=== PATIENT | male | born 2000 | race Caucasian/White ===

== ENCOUNTER 2020-05-21 18:03 | Observation (INO) | payer OTHER, SELFPAY ==
[2020-05-21] VITALS (12 sets, daily range): BP systolic 108–126; BP diastolic 60–76; PULSE 51–62; RESP 10–18; TEMP 36.3–36.7; O2SAT 97–100; BMI 23.4
--- NOTE | 2020-05-21 18:10 | ED.GENADULT ---
HPI - General Adult General Chief complaint: Dental/Oral Stated complaint: Bleeding after tonsilectomy Time Seen by Provider: 05/21/20 18:09 Source: patient and family (Mother) Mode of arrival: Ambulatory Limitations: no limitations History of Present Illness HPI narrative: 19-year-old male sent over to the emergency department from his ENT office with plans of being transported to the emergency department to evaluate and treat a post tonsillectomy bleed. Patient has had 2 separate bleeds today. Was seen both times by the ENT providers and the decision was made to bring him to the hospital to taking to the operating room. The time of his arrival here he was not actively bleeding. There was no issues with breathing. Related Data Home Medications Medication Instructions Recorded Confirmed No Known Home Medications 05/21/20 05/21/20 Allergies Allergy/AdvReac Type Severity Reaction Status Date / Time azithromycin Allergy Verified 05/21/20 19:00 Review of Systems Constitutional Constitutional: Denies fever(s) ENT Comments: Post tonsillectomy bleed Cardiovascular Cardiovascular: Denies dyspnea Respiratory Respiratory: Denies dyspnea Gastrointestinal Gastrointestinal: Denies vomiting Integumentary/Breasts Skin/Breast: Denies rash Hematologic/Lymphatic Hematologic/Lymphatic: Denies easy bleeding and Denies easy bruising Patient History Medical History Concussion (Inactive) Surgical History S/P tonsillectomy (Acute) Social History household members: family Smoking Status: Never smoker alcohol intake: current Smoking Status: Never smoker Exam Initial Vital Signs Initial Vital Signs: Vital Signs Temperature 97.9 F 05/21/20 18:09 Pulse Rate 61 05/21/20 18:09 Respiratory Rate 17 05/21/20 18:09 Blood Pressure 126/75 05/21/20 18:09 Pulse Oximetry 100 05/21/20 18:09 Const General: cooperative and comfortable Limitations: mental status not altered HENMT Head: normal to inspection and normocephalic Mouth: oral mucosae normal Throat: uvula midline and other (Eschar bilateral tonsillar beds without active bleeding) Resp Effort & Inspection: normal respiratory effort Cardio Rate: regular rate Neuro General: patient alert and patient awake Extrem General: normal to inspection Psych Appearance: grossly normal and well kempt Course Orders Ordered: ED Orders 05/21/20 18:07 COVID19 -ED/INPAT/OR/L&D Stat 05/21/20 18:35 Basic Metabolic Panel Stat Complete Blood Count AUTO DIFF Stat Benzocaine (Cepacol Lozenge) 1 each PO PRN PRN PRN Reason: Sore Throat Last Admin: 05/21/20 21:10 Dose: 1 each Documented by: FLOR Fentanyl (Sublimaze) 0 mcg IV Q5M PRN PRN Reason: Pain, Moderate (4-6) Last Admin: 05/21/20 18:57 Dose: 50 mcg Documented by: MIGUEL Hydromorphone HCl (Dilaudid) 0 mg IV Q5M PRN PRN Reason: Pain, Moderate (4-6) Lactated Ringer's (Lactated Ringers) 1,000 mls @ 125 mls/hr IV CONT [facility] Last Admin: 05/21/20 22:45 Dose: 125 mls/hr Documented by: FLOR Meperidine HCl (Demerol) 25 mg IV PACUNOW PRN PRN Reason: Moderate pain or shivering Metoclopramide HCl (Reglan) 10 mg IV NOW PRN PRN Reason: Nausea And Vomiting Naloxone HCl (Narcan) 0.2 mg IV Q2MIN PRN PRN Reason: Opiate Reversal Ondansetron HCl (Zofran) 4 mg IV NOW PRN PRN Reason: Nausea And Vomiting Ondansetron HCl (Zofran) 4 mg IV Q4HR PRN PRN Reason: Nausea And Vomiting Last Admin: 05/21/20 21:10 Dose: 4 mg Documented by: FLOR Oxycodone/Acetaminophen (Percocet 5/325) 1 tab PO Q4HR PRN PRN Reason: Pain, Moderate (4-6) Discontinued Medications Bupivacaine HCl/Epinephrine Bitart (Sensorcaine 0.25% W/ Epi (Pf)) 30 ml INJ NOW ONE Stop: 05/21/20 19:36 Last Admin: 05/21/20 19:36 Dose: 5 ml Documented by: STAR Lactated Ringer's (Lactated Ringers) 1,000 mls @ 42 mls/hr IV CONT [facility] Last Infusion: 05/21/20 20:37 Dose: 0 mls/hr Documented by: Admin: 05/21/20 18:58 Dose: 42 mls/hr Documented by: MIGUEL Lidocaine/Epinephrine (Xylocaine 1% W/Epi) 20 ml INJ NOW ONE Stop: 05/21/20 19:37 Last Admin: 05/21/20 19:37 Dose: 5 ml Documented by: STAR Oxycodone/Acetaminophen (Percocet 5/325) 1 tab PO Q4HR PRN PRN Reason: Pain, Moderate (4-6) Oxymetazoline HCl (Nasal Decongestant) 2 sprays NASAL NOW ONE Stop: 05/21/20 19:38 Last Admin: 05/21/20 19:38 Dose: 1 sprays Documented by: KECIA Vital Signs Vital signs: Vital Signs - 8 hr 05/21/20 18:09 Temperature 97.9 F Pulse Rate 61 Respiratory Rate 17 Blood Pressure 126/75 Pulse Oximetry 100 Medical Decision Making Lab Data Lab results reviewed: Yes I reviewed the patient's lab results. Result diagrams: 05/21/20 18:35 05/21/20 18:35 Labs: Lab Results 05/21/20 05/21/20 05/21/20 Range/Units 18:07 18:35 18:35 WBC 10.0 (4.5-11.0) X10^3/uL RBC 4.57 (4.5-5.9) X10^6/uL Hgb 13.9 (13.5-17.5) g/dL Hct 41.2 (41-53) % MCV 90.2 (80-100) fL MCH 30.4 (26-34) PG MCHC 33.7 (30-36) % RDW 12.7 (11.6-14.8) % Plt Count 185 (150-400) X10^3/uL Neut % (Auto) 66.2 (50-75) % Lymph % (Auto) 24.6 L (25-40) % [place] % (Auto) 8.4 (3-14) % Eos % (Auto) 0.5 L (2-4) % Baso % (Auto) 0.3 (0-2) % Neut # (Auto) 6600 (5976-1279) /uL Lymph # (Auto) 2500 (9870-1575) /uL Thomas # (Auto) 800 (0-900) /uL Eos # (Auto) 0 (0-450) /uL Baso # (Auto) 0 (0-100) /uL Sodium 139 (137-145) mmol/L Potassium 3.9 (3.4-5.1) mmol/L Chloride 101 (98-107) mmol/L Carbon Dioxide 29 (22-32) mmol/L BUN 17 (9-20) mg/dL Creatinine 0.91 (0.66-1.25) mg/dL Estimated GFR > 60.0 (>60) mL/min BUN/Creatinine Ratio 18.7 (6-22) Glucose 100 (70-100) mg/dL Calcium 9.7 (8.4-10.2) mg/dL COVID-19 PCR Negative (Negative) MDM Narrative Medical decision making narrative: IV in place, labs ordered, Dr. Lee from ENT will take patient to the OR for further evaluation treatment. Discharge Plan Departure Clinical Impression: Post-tonsillectomy hemorrhage Admit Date/Time: 05/21/20 18:52 Admit Provider: Bryan Lee
[2020-05-21 18:32] LABS: COVID19 -Nasal RAPID Negative (Negative)
--- NOTE | 2020-05-21 18:44 | PC.NURSE ---
Pt taken to OR by Juju from perianesthesia, Defer assessment to Dr Lyons
[2020-05-21 18:48] LABS: Add Manual Diff / Slide Review NO; Basophils Absolute Auto 0 /uL (0-100); Basophils Percent Auto 0.3 % (0-2); Eosinophils Absolute Auto 0 /uL (0-450); Eosinophils Percent Auto 0.5 % (2-4); Hematocrit 41.2 % (41-53); Hemoglobin 13.9 g/dL (13.5-17.5); Lymphocytes Absolute Auto 2500 /uL (1100-4500); Lymphocytes Percent Auto 24.6 % (25-40); Mean Corpuscular HGB Conc 33.7 % (30-36); Mean Corpuscular Hemoglobin 30.4 PG (26-34); Mean Corpuscular Volume 90.2 fL (80-100); Monocytes Absolute Auto 800 /uL (0-900); Monocytes Percent Auto 8.4 % (3-14); Neutrophils Absolute Auto 6600 /uL (1500-7000); Neutrophils Percent Auto 66.2 % (50-75); Platelet Count 185 X10^3/uL (150-400); Red Blood Cell Count 4.57 X10^6/uL (4.5-5.9); Red Cell Distribution Width 12.7 % (11.6-14.8)
--- NOTE | 2020-05-21 18:52 | P.HP_ITS ---
History of Present Illness History of Present Illness Date Patient Seen: 05/21/20 Time Patient Seen: 18:52 Chief complaint: Bleeding after tonsilectomy Narrative: 19-year-old male originally status post adenotonsillectomy by Dr. Adi perez for chronic tonsillitis at [facility] on 05/12, required operative control of right superior fossa post tonsillectomy hemorrhage by Dr. carrillo at [facility] late 05/19. There was some recurrence bleeding today for which I saw him in clinic and cauterized twice, but ultimately was unable to control the bleeding satisfactorily. Therefore he was transferred to [facility] Emergency room with the plan to proceed to the operating room for operative control. His hematocrit was 44 on 05/19. Pain remains significant although he was keeping up on fluids. Last solid food approximately 12:30 p.m. Patient History Family & Social History Safety & Behavioral: Feels Safe in Current Yes Environment Tobacco & Substance use: Smoking Status Never smoker Meds Home Medications and Allergies Allergies Allergy/AdvReac Type Severity Reaction Status Date / Time azithromycin Allergy Verified 05/21/20 18:44 Review of Systems Review of Systems Narrative: Throat pain, bleeding ROS: Yes All systems reviewed with the patient and are negative except as otherwise documented Exam Vital Signs (past 8 hours): - 05/21/20 18:09 Temperature 97.9 F Pulse Rate 61 Respiratory Rate 17 Blood Pressure 126/75 Pulse Oximetry 100 Oxygen Delivery Method Room Air Narrative Exam Narrative: Well-developed well-nourished male, awake and alert, some fresh clot in the oropharynx. Heart regular rate and rhythm without murmur, lungs clear to auscultation bilaterally Objective Labs Result Diagrams: 05/21/20 18:35 05/21/20 18:35 Labs: Laboratory Results - last 24 hr 05/21/20 05/21/20 18:07 18:35 WBC 10.0 RBC 4.57 Hgb 13.9 Hct 41.2 MCV 90.2 MCH 30.4 MCHC 33.7 RDW 12.7 Plt Count 185 Neut % (Auto) 66.2 Lymph % (Auto) 24.6 L [place] % (Auto) 8.4 Eos % (Auto) 0.5 L Baso % (Auto) 0.3 Neut # (Auto) 6600 Lymph # (Auto) 2500 [place] # (Auto) 800 Eos # (Auto) 0 Baso # (Auto) 0 COVID-19 PCR Negative Assessment & Plan Assessment & Plan narrative: Recurrent bleeding now POD 9. Status post adenotonsillectomy, despite prior operative control of post tonsillectomy bleed POD 7. Following discussion of the material risks benefits complications and alternatives, the patient elects to proceed with operative control of post tonsillectomy hemorrhage, possibly bilateral.
--- NOTE | 2020-05-21 18:52 | PM.PREOP ---
Pre-operative Note COVID-19 COVID-19 status: Negative Interval Note History & Physical reviewed/Exam performed by Physician: Yes Changes to H&P: No
--- NOTE | 2020-05-21 18:56 | P.OP_ITS ---
Operative Date/Time/Diagnoses Date of procedure: 05/21/20 Time of procedure: 19:40 Pre-op diagnosis: Post tonsillectomy hemorrhage, recurrent Post-op diagnosis: same Procedure & Clinicians Procedure: 61232 operative control of posttonsillectomy hemorrhage Same procedure as scheduled: Yes Indications: 19-year-old male, originally status post adenotonsillectomy for chronic tonsillitis 05/12, presents for recurrent post tonsillectomy hemorrhage, now POD 9, originally pod 7., unable to be adequately controlled in clinic. Following discussion of the material risks benefits complications and alternatives, the patient elected to proceed. Surgeon: Bryan Lee Click Yes if Unassisted: Yes Anesthesia Type: General and Local Operative Notes Findings: Intact palate single uvula. Two small clot right inferior tonsillar fossa that once removed revealed small pumping vessels, cauterized. Small vessel left inferior tonsillar fossa also identified and cauterized. The previous left mid fossa cauterized area was further cauterized but no significant bleeding there. Finally, the right superior tonsillar fossa was cauterized in any suspicious areas but no significant bleeding there. No suture s were placed but some more visible from prior placement. No bleeding from the adenoids. Minimal blood in the stomach suctioned with the OG tube. Closure Type: not applicable Specimen(s): none sent Estimated Blood Loss (mL): 10 Blood products transfused: none Procedure in detail: Following identification and confirmation of consent the patient was brought to the operating room suite and placed in the supine position. General endotracheal anesthesia was administered. A head wrap, shoulder roll, and mouth gag were placed and a red rubber catheter was inserted through the nostril and out the mouth to retract the soft palate. The above findings were noted, and suction electrocautery on a setting of 30 was used to systematically removed any visible clot and cauterize the visible vessels. Previously cauterized areas were deliberately manipulated to try to promote any bleeding and cauterized deeper. No suture ligation was necessary. The tonsillar fossae were superficially infiltrated bilaterally with a 1:1 mixture of 1% lidocaine 1 100,000 epinephrine and 0.25% Marcaine 1 to [id number] epinephrine. The OG tube was passed x2 in the stomach. Mouth gag and rubber catheter were removed and the patient was extubated in the operating room and taken to the recovery room in stable condition without known complication. Complications: none Post-operative Condition: stable Disposition: observation Plan for aftercare: Overnight observation due to his recurrent bleeding history, discharge tomorrow in the morning if stable.
[2020-05-21] MEDS: fentaNYL 100 MCG/2 ML INJ IV (18:57)
[2020-05-21] MEDS: LACTATED RINGERS 1,000 ML 42 ML IV (18:58)
[2020-05-21 19:06] LABS: HEMOLYSIS 16 (0-50); Potassium 3.9 mmol/L (3.4-5.1)
[2020-05-21 19:08] LABS: BUN Creatinine Ratio 18.7 (6-22); Blood Urea Nitrogen 17 mg/dL (9-20); Calcium 9.7 mg/dL (8.4-10.2); Carbon Dioxide 29 mmol/L (22-32); Chloride 101 mmol/L (98-107); Estimated Glomerular Filt Rate > 60.0 mL/min (>60); Glucose 100 mg/dL (70-100); Sodium 139 mmol/L (137-145)
--- NOTE | 2020-05-21 19:33 | SUR.OPER ---
Supine on padded OR bed, head on pillow, arms secured on padded arm boards at <90 degrees abduction, legs uncrossed, safety belt at thigh, tape over blanket over lower legs.
[2020-05-21] MEDS: BUPIVACAINE 0.25% W/ EPI 30 ML VIAL INJ (19:36)
[2020-05-21] MEDS: LIDOCAINE 1% W/EPI 20 ML INJ (19:37)
[2020-05-21] MEDS: OXYMETAZOLINE NASAL SPRAY 15 ML 2 SPRAYS NASAL (19:38)
[2020-05-21] MEDS: BENZOCAINE/MENTHOL 1 LOZ PKT 1 EACH PO (21:10)
[2020-05-21] MEDS: ONDANSETRON 4 MG/2 ML INJ IV (21:10)
[2020-05-21] MEDS: LACTATED RINGERS 1,000 ML 125 ML IV (22:45)
[2020-05-21] MEDS: OXYCODONE/ACETAMINOPHEN 5/325 TABLET 1 TAB PO (23:54)
[2020-05-22 00:01] VITALS: BP 121/66; PULSE 84; RESP 16; TEMP 36.4; O2SAT 95
[2020-05-22 00:15] VITALS: O2SAT 95
[2020-05-22 05:01] VITALS: BP 111/70; PULSE 57; RESP 16; TEMP 36.7; O2SAT 96
[2020-05-22 08:00] VITALS: BP 114/45; PULSE 65; RESP 16; TEMP 36.8; O2SAT 97; O2SAT 98
--- NOTE | 2020-05-22 11:43 | CM.IDA ---
Initial DCP Assessment Note Patient is a 19 yo male, resident of [place]. Patient is POD#1 from operative control of post tonsillectomy bleeding (recurrent) PCP: Kiah Hidalgo Payer: [employer] [facility] Reviewed chart. Met w/patient this morning to introduce role. Patient explains he is ready to return home, scheduled to be DC today and has no needs from this [employer] P: DC home w/family to assist as needed via pov JW
--- NOTE | 2020-05-22 19:19 | PM.DS.1 ---
History of Present Illness History of Present Illness Chief complaint: Bleeding after tonsilectomy Narrative: 19-year-old male originally status post adenotonsillectomy by Dr. Adi perez for chronic tonsillitis at [facility] on 05/12, required operative control of right superior fossa post tonsillectomy hemorrhage by Dr. carrillo at [facility] late 05/19. There was some recurrence bleeding today (05/21)for which I saw him in clinic and cauterized twice, but ultimately was unable to control the bleeding satisfactorily. Therefore he was transferred to [facility] Emergency room with the plan to proceed to the operating room for operative control. His hematocrit was 44 on 05/19. Pain remains significant although he was keeping up on fluids. Last solid food approximately 12:30 p.m. Discharge Providers Provider Date of admission: 05/21/20 18:52 Discharge Date: 05/22/20 Primary care physician: Kiah Hidalgo MD Consults: 05/21/20 20:09 Consult to Discharge Planning Routine Comment: Discharge provider: Bryan Lee MD Summary Hospital Course Discharge Diagnosis: Post tonsillectomy hemorrhage, recurrent, controlled in operating Room 05/21/2020 Hospital Course: Patient was taken to the operating Room 05/21/2020, please see dictated operative report for details. He was observed overnight on IV fluids and was stable for discharge home in the morning without any evidence of bleeding. He followed up with me in clinic later that morning in the tonsillar fossa were entirely clear. He was tolerating fluids and pain was controlled. Status at Discharge Cognitive/behavioral status at discharge: at baseline, oriented Functional status at discharge: independent ambulation Overall status at discharge: patient is back to baseline Exam Vital Signs (past 8 hours): Oxygen Delivery Method Room Air Oxygen Flow Rate 0 Objective Labs Result Diagrams: 05/21/20 18:35 05/21/20 18:35 Discharge Plan Discharge Plan Patient Disposition: Home Discharge orders & Medications Prescriptions: No Action No Known Home Medications RF: 0 Follow up/Referrals: Kiah Hidalgo MD [Primary Care Provider] - Visit Report/Discharge Packet Instructions: DI for Tonsillectomy-Adult Visit Report Forms: Patient Portal/API, Stroke Signs & Symptoms Discharge Data Primary Care Provider: Kiah Hidalgo Attending Provider: Bryan Lee Admit Date/Time: 05/21/20 18:52 Discharges patient from system. Discharge Date/Time: 05/22/20 11:01 Quality VTE Deep Vein Thrombosis/Pulmonary Embolism Present on Admission: No
== END 2020-05-22 11:01 | disposition home or self-care (01) ==
LOC: ED 18:37 → AC 18:55
PROVIDERS: Admitting Provider Otolaryngology; Emergency Provider Emergency Medicine; PCP Pediatrics; Referring Provider Emergency Medicine; Visit Provider Otolaryngology
PROC: (CPT 42962; principal; 2020-05-21 19:45)
DX: E89.810 Postprocedural hemorrhage of an endocrine system organ or structure following an endocrine system procedure (principal); Z11.59 Encounter for screening for other viral diseases
CPT/HCPCS: 42962; 36415; 80048; 85025; 87635; 96361; 96374; 99283; G0378; J2405; J3010

== ENCOUNTER → 2022-06-28 16:03 | Outpatient (CLI) | payer BC, SELFPAY ==
[2020-05-21 18:56] VITALS: BMI 23.4
[2022-06-28 18:28] LABS: Add Manual Diff / Slide Review NO; Basophils Absolute Auto 100 /uL (0-100); Basophils Percent Auto 0.6 % (0-2); Eosinophils Absolute Auto 100 /uL (0-450); Eosinophils Percent Auto 0.9 % (2-4); Hemoglobin 14.7 g/dL (13.5-17.5); Lymphocytes Absolute Auto 1700 /uL (1100-4500); Lymphocytes Percent Auto 19.1 % (25-40); Mean Corpuscular HGB Conc 34.2 % (30-36); Mean Corpuscular Hemoglobin 30.5 PG (26-34); Monocytes Absolute Auto 600 /uL (0-900); Neutrophils Absolute Auto 6400 /uL (1500-7000); Neutrophils Percent Auto 72.4 % (50-75); Platelet Count 210 X10^3/uL (150-400); Red Blood Cell Count 4.83 X10^6/uL (4.5-5.9); Red Cell Distribution Width 12.6 % (11.6-14.8); White Blood Cell Count 8.8 X10^3/uL (4.5-11.0)
[2022-06-28 18:35] LABS: Alanine Aminotransferase 33 IU/L (<50); Albumin 4.9 g/dL (3.5-5.0); Albumin Globulin Ratio 1.4 (1.0-2.8); Alkaline Phosphatase 54 U/L (38-126); Aspartate Aminotransferase 39 IU/L (17-59); BUN Creatinine Ratio 24.4 (6-22); Bilirubin Total 0.5 mg/dL (0.2-1.3); Blood Urea Nitrogen 20 mg/dL (9-20); Calcium 9.6 mg/dL (8.4-10.2); Carbon Dioxide 27 mmol/L (22-32); Chloride 99 mmol/L (98-107); Estimated Glomerular Filt Rate > 60 mL/min (>60); Globulin 3.6 g/dL (1.7-4.1); Glucose 93 mg/dL (70-100); HEMOLYSIS 17 (0-50); Lipase 62 U/L (23-300); Potassium 4.1 mmol/L (3.4-5.1); Sodium 138 mmol/L (137-145); Total Protein 8.5 g/dL (6.3-8.2)
== END ==
PROVIDERS: PCP Pediatrics; Referring Provider Physician Assistant; Visit Provider Physician Assistant
DX: R10.9 Unspecified abdominal pain (principal); R19.7 Diarrhea, unspecified
CPT/HCPCS: 36415; 80053; 83690; 85025; 87045; 87899

== ENCOUNTER → 2023-09-01 16:59 | Outpatient (CLI) | payer BC, SELFPAY ==
[2020-05-21 18:56] VITALS: BMI 23.4
--- NOTE | 2023-09-01 | DI.MRI.S_ITS ---
PROCEDURE: MR SHOULDER RT WO CON INDICATIONS: CHRONIC RIGHT SHOULDER PAIN TECHNIQUE: Noncontrast oblique coronal T2 fast spin echo with fat saturation, oblique sagittal T1 spin echo and T2 fast spin echo with fat saturation, axial T1 spin echo and T2 fast spin echo with fat saturation through the shoulder. COMPARISON: [facility], CR, XR SHOULDER 2+ VIEWS RIGHT, 12/08/2021, 7:20. [facility], CR, XR SHOULDER 2+ VIEWS RIGHT, 01/20/2021, 11:01. FINDINGS: Image quality: Satisfactory. Rotator cuff: There is intermediate-grade partial-thickness tear of the supraspinatus tendon involving both articular and bursal surfaces. There is mild infraspinatus and subscapularis tendinosis. Sagittal images demonstrate no rotator cuff muscle atrophy. Bones and bursae: No bone marrow contusions or fractures. No acromioclavicular joint degeneration. The acromion demonstrates conventional anatomy, without an os acromiale. No pathologic subacromial-subdeltoid or subcoracoid bursal fluid is present. Capsule and soft tissues: There is tear of the posterior labrum The long head of the biceps tendon demonstrates normal location and morphology. The rotator interval appears normal, without fibrosis. The coracohumeral ligament is normal in thickness. IMPRESSION: 1. There is intermediate-grade partial-thickness tear of the supraspinatus tendon. No supraspinatus muscle atrophy. 2. Low-grade tendinosis of the infraspinatus and subscapularis tendons. Dictated by: Georgia Pang M.D. on 09/02/2023 at 9:15 Approved by: Georgia Pang M.D. on 09/02/2023 at 13:14
== END ==
PROVIDERS: PCP Pediatrics; Referring Provider Physician Assistant Surgical; Visit Provider Physician Assistant Surgical
DX: M75.111 Incomplete rotator cuff tear or rupture of right shoulder, not specified as traumatic (principal); M25.511 Pain in right shoulder; G89.29 Other chronic pain
CPT/HCPCS: 73221

== ENCOUNTER → 2024-07-02 15:38 | Outpatient (CLI) | payer BC, SELFPAY ==
[2020-05-21 18:56] VITALS: BMI 23.4
[2024-07-02 17:34] LABS: HIV 1 & 2 Ab/Ag 4th Gen Combo NEGATIVE (NEGATIVE); Hep C Virus Ab w/Reflex Quant NEGATIVE s/c (NEGATIVE)
[2024-07-02 18:44] LABS: Urine Chlamydia NOT DETECTED; Urine N gonorrhoeae NOT DETECTED
[2024-07-04 03:11] LABS: RPR Screen Non Reactive (Non Reactive)
== END ==
PROVIDERS: Referring Provider Physician Assistant Medical; Visit Provider Physician Assistant Medical
DX: Z11.3 Encounter for screening for infections with a predominantly sexual mode of transmission (principal)
CPT/HCPCS: 36415; 86592; 86803; 87389; 87491; 87591